=== PATIENT | female | born 1960 | race Caucasian/White ===

== ENCOUNTER 2023-02-14 18:47 | Emergency (ER) | payer OTHER ==
[2023-02-14 18:58] VITALS: BP 108/71; O2SAT 98
--- NOTE | 2023-02-14 19:11 | ED Physician Documentation ---
History of Present Illness - Stated complaint Stated Complaint: FELL, LT TOE LAC - Chief complaint Chief Complaint: Trauma Ext - History obtained from History obtained from: Patient, Family - History of Present Illness Timing: Today Pain level max: 3 Pain level now: 3 - Additonal information Additional information: 62 year old female with a history of diabetes and htn. states that she fell while trying to sit down on her walker and fell onto the L knee and cut her L great toe. no head/neck or back pain. worse with walking, better with rest. Review of Systems Constitutional: denies: Fever, Chills Respiratory: denies: Cough GI: denies: Nausea, Vomiting, Diarrhea Skin: denies: Rash Musculoskeletal: denies: Neck pain, Back pain Neurologic: denies: Focal weakness, Numbness, Headache, Head injury PD PAST MEDICAL HISTORY - Past Medical History Past Medical History: Yes Cardiovascular: Hypertension Endocrine/Autoimmune: Type 2 diabetes - Present Medications Home Medications: Ambulatory Orders Medication Instructions Recorded Confirmed cephALEXin [Keflex] 500 mg PO Q6H #40 cap 02/14/23 - Allergies Allergies/Adverse Reactions: Allergies Allergy/AdvReac Type Severity Reaction Status Date / Time hydromorphone [From Dilaudid] Allergy Itching Verified 02/14/23 18:53 metformin Allergy Itching Verified 02/14/23 18:53 - Living Situation Living Situation: reports: With family Living Arrangement: reports: At home - Family History Family history: reports: Non contributory PD ED PE NORMAL - Vitals Vital signs reviewed: Yes - General General: Alert and oriented X 3, No acute distress - HEENT HEENT: Moist mucous membranes - Neck Neck: Supple, no meningeal sign - Cardiac Cardiac: RRR, Strong equal pulses - Respiratory Respiratory: No respiratory distress, Clear bilaterally - Abdomen Abdomen: Soft, Non tender, Non distended - Derm Derm: Warm and dry - Extremities Extremities: Other (L foot - abrasion, under the great toe and ball of the foot. NVI. mild TTP over the dorsum of the great toe.) - Neuro Neuro: Alert and oriented X 3 - Psych Psych: Normal mood, Normal affect Results - Vitals Vitals: Vital Signs - 24 hr 02/14/23 18:53 Temperature 36.5 C Heart Rate 88 Respiratory 22 Rate Blood Pressure 108/71 O2 Saturation 98 Oxygen O2 Source Room air - Rads (name of study) Left foot x-ray Relevant Findings:: Final report received, See rad report PD Medical Decision Making - ED course Complexity details: reviewed results, re-evaluated patient, considered differential, d/w patient, d/w family ED course: No acute fractures on x-ray. The wounds were cleansed, debrided, gravel removed. Tdap given. Wounds were bandaged. Given the dirty nature of the wound along with the patient being a diabetic, we will start her on Keflex. We will have her follow-up closely with her doctor for further care. Patient counseled regarding signs and symptoms for which I believe and urgent re- evaluation would be necessary. Patient with good understanding of and agreement to plan and is comfortable going home at this time This document was made in part using voice recognition software. While efforts are made to proofread this document, sound alike and grammatical errors may occur. Departure - Departure Disposition: Home, Self Care Clinical Impression: Abrasion Toe contusion Qualifiers: Encounter type: initial encounter Toe: great toe Damage to nail status: without damage Laterality: left Qualified Code(s): S90.112A - Contusion of left great toe without damage to nail, initial encounter Condition: Good Instructions: ED Abrasion Follow-Up: your,doctor in 1 week [Other] Prescriptions: cephALEXin [Keflex] 500 mg PO Q6H #40 cap Comments: It is important that you start the antibiotics tomorrow, you were given your first dose of antibiotic tonight. Keep your wounds clean. As you are diabetic, these wounds are high risk to be infected, in addition there were several pieces of gravel in the wound on the bottom of your foot, we removed as much of the gravel as we could. You may need wound care when you return home to [place]. Please return sooner if you develop redness, swelling or drainage from the wound. You were given a tetanus shot tonight as well. Please make sure to change the dressing at least twice daily, keep the wound clean. Forms: PCP List Discharge Date/Time: 02/14/23 20:35
[2023-02-14] MEDS: TETANUS/DIPHTHERIA/PERTUSSIS 0.5 ML SYRINGE IM ONE (19:18)
[2023-02-14] MEDS: LIDOCAINE-EPINEPH-TETRACAINE 3 ML SYRINGE TOP STA (19:48)
--- NOTE | 2023-02-14 20:00 | XRAY Report ---
PROCEDURE: Foot 3 View RT INDICATIONS: fall, R great toe pain TECHNIQUE: 3 views of the foot were acquired. COMPARISON: None. FINDINGS: Bones: Post ORIF changes are seen in distal fibular shaft and medial malleolus. Alignment of left fo ot is anatomic. No definite acute left foot fracture or dislocation. No gross bony erosive changes ar e noted. No suspicious bony lesions. Soft tissues: Suggestion of soft tissue laceration over plantar aspect of forefoot at the level of M TP joints are seen. Small calcifications are noted at the area of wound concerning for small foreign body. IMPRESSION: Open wound in plantar aspect of forefoot as above. No gross acute left foot fracture or dislocation. Suggestion of small foreign body at the site of wound. Reviewed by: Aryan Fabian MD on 02/14/2023 7:58 PM PDT Approved by: Aryan Fabian MD on 02/14/2023 7:58 PM PDT Station ID: [id number]
[2023-02-14] MEDS: BACITRACIN ZINC OINT 1 PACKET TOP STA (20:25)
[2023-02-14] MEDS: cephALEXin 250 MG CAPSULE PO STA (20:25)
== END 2023-02-14 20:35 | disposition home or self-care (01) ==
LOC: ED 18:47
DX: S90.112A Contusion of left great toe without damage to nail, initial encounter (principal); S90.812A Abrasion, left foot, initial encounter; W19.XXXA Unspecified fall, initial encounter; E11.9 Type 2 diabetes mellitus without complications; I10 Essential (primary) hypertension; Z23 Encounter for immunization
CPT/HCPCS: 90471; 99283; 99284